=== PATIENT | female | born 1975 | race Caucasian/White ===

== ENCOUNTER 2023-11-29 21:44 | Emergency (ER) | payer OTHER ==
[~2023-11-29] VITALS: Ht 157.5 cm; Wt 83.5 kg
[2023-11-29 22:04] VITALS: BP 117/79; PULSE 70; RESP 17; TEMP 98; O2SAT 100
== END 2023-11-29 23:30 | disposition left against medical advice (07) ==
LOC: MED 21:44
DX: M54.2 Cervicalgia (principal); M54.50 Low back pain, unspecified; R51.9 Headache, unspecified; Z53.21 Procedure and treatment not carried out due to patient leaving prior to being seen by health care provider; V49.88XA Car occupant (driver) (passenger) injured in other specified transport accidents, initial encounter; Y93.89 Activity, other specified; Y92.89 Other specified places as the place of occurrence of the external cause; Y99.8 Other external cause status
CPT/HCPCS: 99281